=== PATIENT | male | born 2000 | race Caucasian/White ===

== ENCOUNTER 2021-03-16 00:13 | Emergency (ER) | payer SELFPAY ==
[~2021-03-16] VITALS: Ht 170.2 cm; Wt 70.3 kg
[2021-03-16 00:18] VITALS: BP 145/83
--- NOTE | 2021-03-16 00:20 | NUR ---
PT. IS A 21 Y/O MALE THAT CAME INTO ED WITH C/O OF LEFT HAND LACERATION. PER PT, HE STATES THAT HE WAS OPENING A WINE BOTTLE WHEN IT SHATTERED IN HIS HAND AND CUT HIM. DENIES PAIN. DENIES N/V/D. AAOX4; VSS PMH: APPENDIX REMOVED ALLERGIES: NKA
--- NOTE | 2021-03-16 00:22 | NUR ---
AMBULATES TO BED 8 FROM TRIAGE
--- NOTE | 2021-03-16 00:30 | NUR ---
CASSIDY SERRANO AT BEDSIDE
--- NOTE | 2021-03-16 00:45 | NUR ---
PT. SEEN ON PHONE IN HIGH STEVENS'S POSITION, FRIEND AT BEDSIDE. VOICES NO COMPLAINTS AT THIS TIME.
[2021-03-16] MEDS ORDERED: LIDOCAINE MPF 1% 10 MG/ML VIAL INJ ONE (00:55)
[2021-03-16] MEDS ORDERED: LIDOCAINE MPF 1% 5 ML ONE (00:58)
[2021-03-16] MEDS ORDERED: BACITRACIN OINT 500 UNITS/GM PKT TP ONE ×2 (01:08→01:10)
[2021-03-16 01:18] VITALS: BP 140/84
--- NOTE | 2021-03-16 01:18 | NUR ---
Patient discharged with v/s stable. Written and verbal after care instructions given and explained. Patient verbalized understanding. Ambulatory with steady gait. All questions addressed prior to discharge. Advised to follow up with PMD.
== END 2021-03-16 01:18 | disposition home or self-care (01) ==
LOC: MED 00:13
DX: S61.412A Laceration without foreign body of left hand, initial encounter (principal); W25.XXXA Contact with sharp glass, initial encounter; Y93.89 Activity, other specified; Y92.89 Other specified places as the place of occurrence of the external cause; Y99.8 Other external cause status
CPT/HCPCS: 12001; 90471; 90715; 99283; J2001